=== PATIENT | male | born 1960 | race Caucasian/White ===

== ENCOUNTER 2022-05-26 05:45 | Inpatient (IN) ==
[2022-05-26] MEDS ORDERED: Ondansetron 4 mg VIAL 2 MG/ML 2 ml VIAL IV ONE (07:25)
[2022-05-26] MEDS ORDERED: Morphine 2 MG/ML SYRINGE IV ONE (07:58)
[2022-05-26] MEDS ORDERED: HYDROmorphone 1 MG/1 ML SYRINGE IV SLOW PU ONE ×2 (09:46→15:28)
[2022-05-26] MEDS ORDERED: Ondansetron 4 mg VIAL 2 MG/ML 2 ml VIAL IV PRN (15:16)
[2022-05-26] MEDS ORDERED: oxyCODONE/Acetamin 5/325 mg TAB PO PRN (15:16)
[2022-05-26] MEDS: Lactated Ringers 1000 ml BAG 1,000 ML IV SCH (15:47)
[2022-05-26 17:02] LABS: ABS Eosinophils 0.1 10^3/ul (0-0.6); ABS Lymphocytes 1.4 10^3/ul (1.0-4.8); ABS Monocytes 0.7 10^3/ul (0-0.8); ABS Neutrophils 3.4 10^3/ul (1.5-7.7); Eosinophil % 1.9 %; Hematocrit 39 % (42-52); Hemoglobin 12.8 g/dL (14.0-18.0); Lymphocyte % 25.3 %; Mean Corpuscular HGB Conc 33 g/dL (31-36); Mean Corpuscular Hemoglobin 32 pg (27-31); Mean Corpuscular Volume 98 fL (80-94); Mean Platelet Volume 8.2 fL (7.4-10.4); Platelet Count 144 10^3/uL (150-450); Red Blood Count 4.01 10^6 /uL (4.18-5.48); Red Cell Distribution Width 15 % (10-15); White Blood Count 5.7 10^3/uL (3.5-10.8)
[2022-05-26 17:06] LABS: Activated Partial Thrombo Time 28.5 seconds (26.0-38.0); INR 1.05 (0.89-1.11)
[2022-05-26 17:44] LABS: Albumin/Globulin Ratio 1.8 (1-3); Globulin 2.2 g/dL (2-4); Potassium 4.4 mmol/L (3.5-5.0); Total Bilirubin 1.7 mg/dL (0.2-1.0); Total Protein 6.2 g/dL (6.4-8.9)
[2022-05-26] MEDS: Senna TAB 8.6 mg TAB PO SCH (20:43)
[2022-05-26] MEDS: Heparin 5000 UNITS/ML 1 mL VIAL SUBCUT SCH (20:44)
[2022-05-26 21:06] LABS: High Sensitivity Troponin 1 Hr 5 pg/mL (<20)
[2022-05-26] MEDS ORDERED: HYDROmorphone 0.5 MG/0.5 ML SYRINGE IV SLOW PU PRN (21:37)
[2022-05-26] MEDS ORDERED: Morphine 2 MG/ML SYRINGE IV PRN (21:38)
[2022-05-27] MEDS: Heparin 5000 UNITS/ML 1 mL VIAL SUBCUT SCH ×3 (05:52→21:23)
[2022-05-27 08:44] LABS: ABS Eosinophils 0.2 10^3/ul (0-0.6); ABS Lymphocytes 1.1 10^3/ul (1.0-4.8); ABS Monocytes 0.5 10^3/ul (0-0.8); ABS Neutrophils 2.6 10^3/ul (1.5-7.7); Eosinophil % 4.8 %; Hematocrit 37 % (42-52); Hemoglobin 12.1 g/dL (14.0-18.0); Lymphocyte % 24.4 %; Mean Corpuscular HGB Conc 33 g/dL (31-36); Mean Corpuscular Hemoglobin 31 pg (27-31); Mean Corpuscular Volume 95 fL (80-94); Mean Platelet Volume 7.1 fL (7.4-10.4); Platelet Count 155 10^3/uL (150-450); Red Blood Count 3.87 10^6 /uL (4.18-5.48); Red Cell Distribution Width 14 % (10-15); White Blood Count 4.4 10^3/uL (3.5-10.8)
[2022-05-27 09:14] LABS: Albumin 3.9 g/dL (3.2-5.2); Albumin/Globulin Ratio 1.7 (1-3); Calcium 8.2 mg/dL (8.6-10.3); Globulin 2.3 g/dL (2-4); Potassium 4.5 mmol/L (3.5-5.0); Total Protein 6.2 g/dL (6.4-8.9)
[2022-05-27] MEDS: HYDROmorphone 1 MG/1 ML SYRINGE IV SLOW PU PRN ×3 (10:28→19:36)
[2022-05-27] MEDS: Lactated Ringers 1000 ml BAG 1,000 ML IV SCH ×2 (10:30→21:21)
[2022-05-27] MEDS: Senna TAB 8.6 mg TAB PO SCH (21:23)
[2022-05-28] MEDS: HYDROmorphone 1 MG/1 ML SYRINGE IV SLOW PU PRN ×3 (02:38→14:19)
[2022-05-28] MEDS: Heparin 5000 UNITS/ML 1 mL VIAL SUBCUT SCH ×2 (05:12→12:06)
[2022-05-28 07:08] LABS: Calcium 8.1 mg/dL (8.6-10.3); Potassium 4.1 mmol/L (3.5-5.0); eGFR CKD-EPI 100.6 (>60)
[2022-05-28] MEDS: Lactated Ringers 1000 ml BAG 1,000 ML IV SCH (08:07)
[2022-05-28] MEDS ORDERED: Lactated Ringers 1000 ml BAG 500 ML IV ONE (17:07)
[2022-05-28] MEDS ORDERED: Lactated Ringers 1000 ml BAG 1,000 ML IV SCH (17:08)
[2022-05-28] MEDS ORDERED: HYDROmorphone 1 MG/1 ML SYRINGE IV PRN (18:20)
[2022-05-28] MEDS ORDERED: fentaNYL 100 mcg/2 ml 50 MCG/ML VIAL IV PRN (18:20)
[2022-05-28] MEDS ORDERED: Naloxone 0.4 mg VIAL 0.4 mg/ml 1 ml VIAL IV PRN (18:20)
[2022-05-28] MEDS ORDERED: Acetaminophen IV 1 GM/100ML 1,000 MG/100 ML BAG IV PRN (18:20)
[2022-05-28] MEDS ORDERED: Ondansetron 4 mg VIAL 2 MG/ML 2 ml VIAL IV PRN (18:20)
[2022-05-28] MEDS ORDERED: Midazolam 2 mg/2 ml VIAL 1 mg/ml 2 ml VIAL (2 mg) ONE (18:29)
[2022-05-28] MEDS ORDERED: Dexamethasone IV 4 MG/ML VIAL 1 ml VIAL ONE (18:29)
[2022-05-28] MEDS ORDERED: Propofol 10 MG/ML 20 ML BTL ONE ×3 (18:29→22:36)
[2022-05-28] MEDS ORDERED: fentaNYL 100 mcg/2 ml 50 MCG/ML VIAL ONE (18:29)
[2022-05-28] MEDS ORDERED: Ondansetron 4 mg VIAL 2 MG/ML 2 ml VIAL ONE (18:29)
[2022-05-28] MEDS ORDERED: Phenylephrine IV 10 MG/ML 1 ml VIAL ONE (18:31)
[2022-05-28] MEDS ORDERED: Bupivacaine 0.5% PF 10 ML SDV VIAL INJ ONE (18:31)
[2022-05-28] MEDS ORDERED: Ketamine HCL 50 mg/ml 10 ml VIAL (500 MG) ONE (18:38)
[2022-05-28] MEDS ORDERED: Vancomycin 1,000 MG VIAL ONE (18:47)
[2022-05-28] MEDS ORDERED: ceFAZolin 2 GM in NS PREMIX 2 GM/100 ML BAG IVPB ONE (19:03)
[2022-05-28] MEDS ORDERED: ceFAZolin 1 GM in Dextrose 1 GM/50 ML BAG ONE (19:03)
[2022-05-28] MEDS ORDERED: Lidocaine 2% PF 10 ML AMP (OR) ONE (22:13)
[2022-05-28] MEDS ORDERED: ROPIVACAINE 5 MG/ML 30 ML BTL (0.5%) ONE (22:30)
[2022-05-28] MEDS ORDERED: Sterile Water for Inj 10 ML ONE (22:52)
[2022-05-29] MEDS ORDERED: Ondansetron 4 mg VIAL 2 MG/ML 2 ml VIAL ONE (00:10)
[2022-05-29] MEDS ORDERED: Acetaminophen IV 1 GM/100ML 1,000 MG/100 ML BAG IV ONE (00:39)
[2022-05-29] MEDS ORDERED: Ropivacaine (OR use only) 2 MG/ML 10 ML ONE (00:40)
[2022-05-29 00:50] LABS: Hematocrit 30 % (42-52)
[2022-05-29] MEDS: Senna TAB 8.6 mg TAB PO SCH ×2 (02:06→20:30)
[2022-05-29] MEDS: Heparin 5000 UNITS/ML 1 mL VIAL SUBCUT SCH ×4 (02:06→20:31)
[2022-05-29] MEDS: Lactated Ringers 1000 ml BAG 1,000 ML IV SCH ×4 (02:11→22:01)
[2022-05-29 04:45] LABS: ABS Lymphocytes 0.4 10^3/ul (1.0-4.8); ABS Monocytes 0.3 10^3/ul (0-0.8); ABS Neutrophils 5.2 10^3/ul (1.5-7.7); Eosinophil % 0.1 %; Hematocrit 27 % (42-52); Lymphocyte % 6.8 %; Mean Corpuscular HGB Conc 33 g/dL (31-36); Mean Corpuscular Hemoglobin 32 pg (27-31); Mean Corpuscular Volume 97 fL (80-94); Mean Platelet Volume 7.1 fL (7.4-10.4); Platelet Count 164 10^3/uL (150-450); Red Blood Count 2.83 10^6 /uL (4.18-5.48); Red Cell Distribution Width 14 % (10-15); White Blood Count 5.9 10^3/uL (3.5-10.8)
[2022-05-29] MEDS: ceFAZolin 1 GM Q8H (ADVAN) IVPB SCH ×3 (04:54→20:37)
[2022-05-29 05:24] LABS: Calcium 7.7 mg/dL (8.6-10.3); Potassium 4.7 mmol/L (3.5-5.0); eGFR CKD-EPI 104.4 (>60)
[2022-05-29] MEDS: HYDROmorphone 1 MG/1 ML SYRINGE IV SLOW PU PRN ×3 (06:28→20:34)
[2022-05-29] MEDS: Aspirin EC 81 mg TAB.EC (enteric coated) PO SCH (08:18)
[2022-05-29] MEDS: Magnesium Hydroxide LIQ 30 ML UDC PO PRN (20:30)
[2022-05-30] MEDS: ceFAZolin 1 GM Q8H (ADVAN) IVPB SCH ×3 (04:40→20:14)
[2022-05-30] MEDS: Heparin 5000 UNITS/ML 1 mL VIAL SUBCUT SCH ×3 (05:46→22:14)
[2022-05-30] MEDS: Aspirin EC 81 mg TAB.EC (enteric coated) PO SCH (08:10)
[2022-05-30] MEDS: HYDROmorphone 1 MG/1 ML SYRINGE IV SLOW PU PRN (20:09)
[2022-05-30] MEDS: Senna TAB 8.6 mg TAB PO SCH (20:12)
[2022-05-31] MEDS: Heparin 5000 UNITS/ML 1 mL VIAL SUBCUT SCH ×3 (04:54→21:06)
[2022-05-31 07:45] LABS: ABS Eosinophils 0.3 10^3/ul (0-0.6); ABS Lymphocytes 1.4 10^3/ul (1.0-4.8); ABS Monocytes 0.5 10^3/ul (0-0.8); ABS Neutrophils 2.6 10^3/ul (1.5-7.7); Eosinophil % 6.5 %; Hematocrit 23 % (42-52); Hemoglobin 7.7 g/dL (14.0-18.0); Lymphocyte % 28.1 %; Mean Corpuscular HGB Conc 33 g/dL (31-36); Mean Corpuscular Hemoglobin 32 pg (27-31); Mean Corpuscular Volume 97 fL (80-94); Mean Platelet Volume 7.1 fL (7.4-10.4); Platelet Count 207 10^3/uL (150-450); Red Blood Count 2.41 10^6 /uL (4.18-5.48); Red Cell Distribution Width 14 % (10-15); White Blood Count 4.8 10^3/uL (3.5-10.8)
[2022-05-31] MEDS: Aspirin EC 81 mg TAB.EC (enteric coated) PO SCH (09:00)
[2022-05-31] MEDS: Magnesium Hydroxide LIQ 30 ML UDC PO PRN (15:00)
[2022-05-31] MEDS: HYDROmorphone 1 MG/1 ML SYRINGE IV SLOW PU PRN (18:21)
[2022-05-31] MEDS: Senna TAB 8.6 mg TAB PO SCH (21:04)
[2022-06-01] MEDS: Heparin 5000 UNITS/ML 1 mL VIAL SUBCUT SCH ×3 (04:39→21:40)
[2022-06-01 06:46] LABS: ABS Eosinophils 0.3 10^3/ul (0-0.6); ABS Lymphocytes 1.1 10^3/ul (1.0-4.8); ABS Monocytes 0.5 10^3/ul (0-0.8); ABS Neutrophils 2.4 10^3/ul (1.5-7.7); Eosinophil % 7.1 %; Hematocrit 24 % (42-52); Lymphocyte % 25.3 %; Mean Corpuscular HGB Conc 33 g/dL (31-36); Mean Corpuscular Hemoglobin 32 pg (27-31); Mean Corpuscular Volume 96 fL (80-94); Mean Platelet Volume 7.3 fL (7.4-10.4); Nucleated Red Blood Cells % 0.3; Platelet Count 237 10^3/uL (150-450); Red Blood Count 2.51 10^6 /uL (4.18-5.48); Red Cell Distribution Width 14 % (10-15); White Blood Count 4.3 10^3/uL (3.5-10.8)
[2022-06-01] MEDS: Aspirin EC 81 mg TAB.EC (enteric coated) PO SCH (08:51)
[2022-06-01] MEDS: Senna TAB 8.6 mg TAB PO SCH (21:39)
[2022-06-02] MEDS: Heparin 5000 UNITS/ML 1 mL VIAL SUBCUT SCH ×3 (05:34→21:05)
[2022-06-02] MEDS: Aspirin EC 81 mg TAB.EC (enteric coated) PO SCH (08:47)
[2022-06-02] MEDS: Senna TAB 8.6 mg TAB PO SCH (21:01)
[2022-06-03 05:16] LABS: ABS Eosinophils 0.3 10^3/ul (0-0.6); ABS Lymphocytes 1.5 10^3/ul (1.0-4.8); ABS Monocytes 0.5 10^3/ul (0-0.8); ABS Neutrophils 2.2 10^3/ul (1.5-7.7); Eosinophil % 6.3 %; Hematocrit 24 % (42-52); Hemoglobin 7.6 g/dL (14.0-18.0); Lymphocyte % 33.9 %; Mean Corpuscular HGB Conc 32 g/dL (31-36); Mean Corpuscular Hemoglobin 30 pg (27-31); Mean Corpuscular Volume 96 fL (80-94); Mean Platelet Volume 6.4 fL (7.4-10.4); Nucleated Red Blood Cells % 0.3; Platelet Count 330 10^3/uL (150-450); Red Cell Distribution Width 14 % (10-15); White Blood Count 4.6 10^3/uL (3.5-10.8)
[2022-06-03] MEDS: Heparin 5000 UNITS/ML 1 mL VIAL SUBCUT SCH ×3 (05:45→20:38)
[2022-06-03] MEDS: HYDROmorphone 1 MG/1 ML SYRINGE IV SLOW PU PRN (05:50)
[2022-06-03 05:54] LABS: Calcium 8.2 mg/dL (8.6-10.3); Magnesium 2.1 mg/dL (1.9-2.7); Potassium 4.8 mmol/L (3.5-5.0); eGFR CKD-EPI 102.7 (>60)
[2022-06-03] MEDS: Aspirin EC 81 mg TAB.EC (enteric coated) PO SCH (09:46)
[2022-06-03] MEDS: Senna TAB 8.6 mg TAB PO SCH (20:38)
[2022-06-04] MEDS: Heparin 5000 UNITS/ML 1 mL VIAL SUBCUT SCH (05:16)
[2022-06-04 09:54] LABS: Hematocrit 27 % (42-52); Hemoglobin 8.8 g/dL (14.0-18.0); Mean Platelet Volume 6.6 fL (7.4-10.4); Platelet Count 392 10^3/uL (150-450)
[2022-06-04] MEDS: Aspirin EC 81 mg TAB.EC (enteric coated) PO SCH (10:09)
[2022-06-04 10:49] LABS: Calcium 8.7 mg/dL (8.6-10.3); Potassium 4.6 mmol/L (3.5-5.0); eGFR CKD-EPI 100.6 (>60)
[2022-06-04 11:19] VITALS: BP 120/74
[2022-06-04] MEDS ORDERED: Enoxaparin 40 MG/0.4 ML SYR SUBCUT SCH (14:00)
== END 2022-06-04 13:21 | DRG 308 ==
LOC: ED 05:45 → EDHOLD 14:47 → SSU 15:36
PROVIDERS: ADMIT Orthopaedic Surgery; ATTEND Orthopaedic Surgery